=== PATIENT | female | born 1945 | race Caucasian/White ===

== ENCOUNTER → 2017-05-02 | Outpatient (CLI) | payer MEDICARE, BC ==
--- NOTE | ~2017-05-02 | MY29 ---
[facility] A Service of [facility] & [facility] RADIOLOGY TEXT RESULTS PATIENT: JUAREZ BUCKLEY LOCATION: [facility] : 41 UNIT #: [id number] AGE: [address]: Fernando Shook MD SEX: F ORDER DR: [id number] [facility] [address] [place], [place] [address] [id number] O MR#: [id number] #: [id number] NAME: JUAREZ BUCKLEY : 1945 SEX: F STUDY DATE/TIME: 05/02/2017 9:34 UNIT: [facility] ROOM: STUDY DESCRIPTION: MY [place] SCREENING W/ CAD BILAT Attending Physician: Fernando Shook M.D. Referring Physician: Fernando Shook M.D. Ordering Physician: Fernando Shook M.D. Primary Care Physician: Fernando Shook M.D. MEDICAL IMAGING REPORT This report is preliminary unless electronic signature is present EXAM Digital screening mammogram, 05/02/2017 HISTORY 71-year-old woman no risk elevation. Annual screening. COMPARISON Mammograms date to 03/28/2006 with most recent 04/15/2016. FINDINGS Digital imaging of each breast was completed utilizing a two-view examination of each breast in craniocaudal and mediolateral-oblique projections. Review and interpretation of digital mammograms include a second review in conjunction with FDA-approved CAD device. There is a normal parenchymal presentation bilaterally consistent with the patient's age. There are no breast masses imaged and no parenchymal asymmetry is visualized. There are no suspicious microcalcifications and I see no focal architectural disturbance. IMPRESSION Negative screening digital mammogram. One-year followup recommended. Patients over the age of 40 are entered into a reminder system with target due date for the next mammogram. A result letter will also be sent to the patient. BIRADS: 1 Negative Dictated by... Cuong Carreno M.D. THIS IS AN ELECTRONICALLY VERIFIED REPORT Cuong Carreno M.D. at 05/02/2017 1:56 PM [facility] A Service of [facility] & [facility] RADIOLOGY TEXT RESULTS PATIENT: JUAREZ BUCKLEY [id number] 41 UNIT #: [id number] AGE: [address]: Fernando Shook MD SEX: F ORDER DR: Josefa TD: 05/02/2017 11:59 JOB #: [id number] MEDICAL IMAGING REPORT Page 1 of 1 COPY
== END | disposition home or self-care (01) ==
LOC: CWCC 09:09
DX: Z12.31 Encounter for screening mammogram for malignant neoplasm of breast (principal)
CPT/HCPCS: G0202